=== PATIENT | female | born 1980 | race Hispanic/Latino ===

== ENCOUNTER 2022-04-24 03:57 | Inpatient (IN) | payer BC, OTHER ==
[~2022-04-24] VITALS: Ht 157.5 cm; Wt 74.0 kg
[2022-04-24] MEDS ORDERED: KETOROLAC 60 MG VIAL (30MG/ML) IM ONE (04:30)
[2022-04-24] MEDS ORDERED: CYCLOBENZAPRINE HCL 10 MG TABLET PO ONE (04:30)
[2022-04-24 05:22] LABS: BASOPHILS % (AUTO) 0.3 % (0.0-5.0); EOSINOPHILS % (AUTO) 0.7 % (0.0-8.0); HEMATOCRIT 31.8 % (36-48); LYMPHOCYTES % (AUTO) 7.8 % (21.0-51.0); MEAN CORPUSCULAR HEMOGLOBIN 25.3 pg (27.0-33.0); MEAN CORPUSCULAR HGB CONC 31.8 g/dL (32.0-36.0); MEAN CORPUSCULAR VOLUME 79.5 fL (79-99); MONOCYTES % (AUTO) 9.3 % (3.0-13.0); NEUTROPHILS % (AUTO) 80.8 % (40.0-77.0); PLATELET COUNT (AUTO) 284 K/uL (130-400); RED CELL DISTRIBUTION WIDTH 15.9 % (11.0-15.5); WHITE BLOOD COUNT (AUTO) 11.7 K/uL (4.8-10.8)
[2022-04-24 05:32] LABS: CREATININE 0.6 mg/dL (0.5-1.5); POTASSIUM 3.1 mmol/L (3.5-5.1)
[2022-04-24 05:36] LABS: ALBUMIN 2.5 g/dL (3.5-5.0); TOTAL PROTEIN, SERUM 7.9 g/dL (6.0-8.3)
[2022-04-24] MEDS ORDERED: IOHEXOL 350 MG/ML 100ML INFUS..BTL IV ONE (06:18)
[2022-04-24] MEDS ORDERED: VANCOMYCIN PROTOCOL PER PHARMACY IV ONE (08:30)
[2022-04-24] MEDS ORDERED: CEFTRIAXONE 2GM VIAL IVPB ONE (08:30)
[2022-04-24] MEDS: VANCOMYCIN 1.25 GM/250 ML BAG 250 ML IV SCH ×2 (09:22→20:12)
[2022-04-24 09:39] LABS: MAGNESIUM 1.7 mg/dL (1.80-2.40)
[2022-04-24] MEDS ORDERED: POTASSIUM CHLORIDE 20MEQ/100ML 100 ML IV PRN ×2 (13:00→17:00)
[2022-04-24] MEDS ORDERED: 0.9%NACL 1000ML 1,000 ML IV SCH (13:00)
[2022-04-24] MEDS ORDERED: LIDOCAINE HCL-MPF 1% 2ML VIAL IV PRN ×2 (13:00→17:00)
[2022-04-24] MEDS ORDERED: VANCOMYCIN PROTOCOL PER PHARMACY IV PRN (13:00)
[2022-04-24] MEDS ORDERED: ONDANSETRON 4MG INJ IV PRN (13:00)
[2022-04-24 13:12] LABS: HEMOGLOBIN A1C 5.7 % (4.0-6.0)
[2022-04-24] MEDS: MAGNESIUM 2GM PREMIX 50ML 50 ML IV PRN (13:31)
[2022-04-24] MEDS ORDERED: ACETAMINOPHEN 500 MG TABLET ONE (14:36)
[2022-04-24] MEDS: KETOROLAC 15MG/ML VIAL (15MG/ML) IV PRN (16:46)
[2022-04-24] MEDS ORDERED: KCL 20 MEQ ERTAB PO ONE (16:47)
[2022-04-24] MEDS: ZOSYN 3.375GM +NS 50ML IV SCH ×2 (16:47→23:16)
[2022-04-24] MEDS ORDERED: GADOTERATE MEGLUMINE 10 MMOL/20 ML VIAL IV ONE (16:49)
[2022-04-24] MEDS ORDERED: POTASSIUM CHLORIDE 10% ELIXIR 20 MEQ/15 ML UDCUP PO PRN (17:00)
[2022-04-24] MEDS: KCL 20 MEQ ERTAB PO PRN (17:53)
[2022-04-24 20:00] VITALS: BP 128/82
[2022-04-24] MEDS: HYDROMORPHONE 0.5 MG SYG (0.5MG/0.5ML) IM PRN (21:31)
[2022-04-25] VITALS (27 sets, daily range): BP systolic 111–181; BP diastolic 58–106
[2022-04-25] MEDS: ACETAMINOPHEN 500 MG TABLET PO PRN (00:15)
[2022-04-25] MEDS: HYDROMORPHONE 0.5 MG SYG (0.5MG/0.5ML) IM PRN ×2 (04:48→20:36)
[2022-04-25 04:59] LABS: BASOPHILS % (AUTO) 0.2 % (0.0-5.0); EOSINOPHILS % (AUTO) 0.9 % (0.0-8.0); HEMATOCRIT 29.9 % (36-48); LYMPHOCYTES % (AUTO) 16.2 % (21.0-51.0); MEAN CORPUSCULAR HEMOGLOBIN 24.4 pg (27.0-33.0); MEAN CORPUSCULAR HGB CONC 31.1 g/dL (32.0-36.0); MEAN CORPUSCULAR VOLUME 78.5 fL (79-99); MONOCYTES % (AUTO) 9.3 % (3.0-13.0); NEUTROPHILS % (AUTO) 72.6 % (40.0-77.0); PLATELET COUNT (AUTO) 282 K/uL (130-400); RED BLOOD CELL COUNT(AUTO) 3.81 MIL/uL (4.00-5.50); RED CELL DISTRIBUTION WIDTH 16.1 % (11.0-15.5); WHITE BLOOD COUNT (AUTO) 10.1 K/uL (4.8-10.8)
[2022-04-25 05:11] LABS: ALBUMIN 2.1 g/dL (3.5-5.0); CREATININE 0.7 mg/dL (0.5-1.5); MAGNESIUM 1.7 mg/dL (1.80-2.40); POTASSIUM 3.6 mmol/L (3.5-5.1)
[2022-04-25 09:30] LABS: INR 0.93 (0.85-1.15); PROTHROMBIN TIME 10.1 SEC (9.6-11.6)
[2022-04-25 09:31] LABS: PARTIAL THROMBOPLASTIN TIME 30.2 SEC (26.3-35.5)
[2022-04-25] MEDS: PANTOPRAZOLE 40 MG/VIAL IVP SCH (09:33)
[2022-04-25] MEDS: ZOSYN 3.375GM +NS 50ML IV SCH ×2 (09:33→17:40)
[2022-04-25] MEDS ORDERED: LIDOCAINE 1%-EPI 1:100,000 20 ML VIAL IJ ONE (10:55)
[2022-04-25] MEDS: VANCOMYCIN 1.25 GM/250 ML BAG 250 ML IV SCH ×2 (11:07→21:04)
[2022-04-25] MEDS ORDERED: LACTATED RINGERS 1000ML 1,000 ML IV ONE (11:07)
[2022-04-25] MEDS ORDERED: FAMOTIDINE 20MG VIAL IV ONE (12:32)
[2022-04-25] MEDS ORDERED: HYDROMORPHONE 1 MG INJ ONE (12:33)
[2022-04-25] MEDS ORDERED: LIDOCAINE PF 100MG/5ML (2%) SYRINGE 5ML ONE (12:36)
[2022-04-25] MEDS ORDERED: SUCCINYLCHOLINE 200MG/10ML SYR ONE (12:36)
[2022-04-25] MEDS ORDERED: GLYCOPYRROLATE 1 MG/5 ML SYRINGE ONE (12:36)
[2022-04-25] MEDS ORDERED: ROCURONIUM 10MG/1ML SYR 10 MG/ML ML ONE (12:36)
[2022-04-25] MEDS ORDERED: PROPOFOL 10 MG/ML 20ML VIAL IV ONE (12:36)
[2022-04-25] MEDS ORDERED: FENTANYL CITRATE PF 50 MCG/1 ML 2ML VIAL ONE ×2 (12:37→13:07)
[2022-04-25] MEDS ORDERED: MIDAZOLAM HCL 1 MG/ML 2ML VIAL ONE (12:38)
[2022-04-25] MEDS ORDERED: NEOSTIGMINE 5MG/5ML SYR IV ONE (13:21)
[2022-04-25] MEDS: MAGNESIUM 2GM PREMIX 50ML 50 ML IV PRN (15:31)
[2022-04-26] VITALS: BP 123/82
[2022-04-26] MEDS: ZOSYN 3.375GM +NS 50ML IV SCH ×4 (00:03→23:25)
[2022-04-26] MEDS: ACETAMINOPHEN 500 MG TABLET PO PRN (00:14)
[2022-04-26 04:00] VITALS: BP 123/83
[2022-04-26 04:23] LABS: BASOPHILS % (AUTO) 0.3 % (0.0-5.0); EOSINOPHILS % (AUTO) 0.8 % (0.0-8.0); HEMATOCRIT 29.7 % (36-48); LYMPHOCYTES % (AUTO) 18.2 % (21.0-51.0); MEAN CORPUSCULAR HEMOGLOBIN 24.3 pg (27.0-33.0); MEAN CORPUSCULAR HGB CONC 30.6 g/dL (32.0-36.0); MEAN CORPUSCULAR VOLUME 79.2 fL (79-99); MONOCYTES % (AUTO) 12.7 % (3.0-13.0); NEUTROPHILS % (AUTO) 67.5 % (40.0-77.0); PLATELET COUNT (AUTO) 285 K/uL (130-400); RED BLOOD CELL COUNT(AUTO) 3.75 MIL/uL (4.00-5.50); RED CELL DISTRIBUTION WIDTH 16.1 % (11.0-15.5); WHITE BLOOD COUNT (AUTO) 8.7 K/uL (4.8-10.8)
[2022-04-26 05:06] LABS: CREATININE 0.6 mg/dL (0.5-1.5); POTASSIUM 3.5 mmol/L (3.5-5.1)
[2022-04-26] MEDS ORDERED: GUAIFENESIN-DM 200/20 MG 10 ML ONE (05:15)
[2022-04-26] MEDS: HYDROMORPHONE 0.5 MG SYG (0.5MG/0.5ML) IM PRN (07:27)
[2022-04-26 07:55] VITALS: BP 127/97
[2022-04-26] MEDS: VANCOMYCIN 1.25 GM/250 ML BAG 250 ML IV SCH ×2 (08:27→21:24)
[2022-04-26] MEDS: PANTOPRAZOLE 40 MG/VIAL IVP SCH (08:27)
[2022-04-26] MEDS: KETOROLAC 15MG/ML VIAL (15MG/ML) IV PRN ×2 (09:20→21:37)
[2022-04-26 12:00] VITALS: BP 111/78
[2022-04-26] MEDS: BENZONATATE 100 MG CAPSULE PO PRN (12:04)
[2022-04-26 16:05] VITALS: BP 129/87
[2022-04-26 20:00] VITALS: BP 133/90
[2022-04-27] VITALS (7 sets, daily range): BP systolic 121–137; BP diastolic 75–96
[2022-04-27] MEDS: BENZONATATE 100 MG CAPSULE PO PRN ×2 (03:33→12:34)
[2022-04-27 04:37] LABS: BASOPHILS % (AUTO) 0.2 % (0.0-5.0); EOSINOPHILS % (AUTO) 1.3 % (0.0-8.0); HEMATOCRIT 29.3 % (36-48); MEAN CORPUSCULAR HEMOGLOBIN 24.9 pg (27.0-33.0); MEAN CORPUSCULAR HGB CONC 30.7 g/dL (32.0-36.0); MEAN CORPUSCULAR VOLUME 81.2 fL (79-99); MONOCYTES % (AUTO) 8.8 % (3.0-13.0); PLATELET COUNT (AUTO) 307 K/uL (130-400); RED BLOOD CELL COUNT(AUTO) 3.61 MIL/uL (4.00-5.50); RED CELL DISTRIBUTION WIDTH 15.9 % (11.0-15.5); WHITE BLOOD COUNT (AUTO) 9.2 K/uL (4.8-10.8)
[2022-04-27 04:55] LABS: CREATININE 0.6 mg/dL (0.5-1.5); CRP QUANTITATIVE 165.9 mg/L (0.00-9.0); POTASSIUM 3.5 mmol/L (3.5-5.1)
[2022-04-27] MEDS: KETOROLAC 15MG/ML VIAL (15MG/ML) IV PRN (07:02)
[2022-04-27] MEDS: ZOSYN 3.375GM +NS 50ML IV SCH (09:23)
[2022-04-27] MEDS: PANTOPRAZOLE 40 MG/VIAL IVP SCH (09:23)
[2022-04-27] MEDS: ACETAMINOPHEN WITH CODEINE 1 TAB TAB PO PRN ×2 (09:25→17:29)
[2022-04-27] MEDS: VANCOMYCIN 1.5 GM/250 ML BAG 250 ML IV SCH ×2 (09:41→20:37)
[2022-04-27] MEDS: HYDROMORPHONE 0.5 MG SYG (0.5MG/0.5ML) IM PRN (18:38)
[2022-04-28] MEDS: KETOROLAC 15MG/ML VIAL (15MG/ML) IV PRN ×2 (00:48→15:38)
[2022-04-28 03:35] VITALS: BP 134/84
[2022-04-28 05:10] LABS: BASOPHILS % (AUTO) 0.4 % (0.0-5.0); EOSINOPHILS % (AUTO) 3.9 % (0.0-8.0); HEMATOCRIT 27.8 % (36-48); LYMPHOCYTES % (AUTO) 23.7 % (21.0-51.0); MEAN CORPUSCULAR HEMOGLOBIN 24.6 pg (27.0-33.0); MEAN CORPUSCULAR HGB CONC 30.2 g/dL (32.0-36.0); MEAN CORPUSCULAR VOLUME 81.5 fL (79-99); PLATELET COUNT (AUTO) 345 K/uL (130-400); RED BLOOD CELL COUNT(AUTO) 3.41 MIL/uL (4.00-5.50); RED CELL DISTRIBUTION WIDTH 15.8 % (11.0-15.5); WHITE BLOOD COUNT (AUTO) 8.4 K/uL (4.8-10.8)
[2022-04-28 05:24] LABS: CREATININE 0.6 mg/dL (0.5-1.5); POTASSIUM 3.4 mmol/L (3.5-5.1)
[2022-04-28 07:35] VITALS: BP 138/93
[2022-04-28] MEDS: PANTOPRAZOLE 40 MG/VIAL IVP SCH (08:11)
[2022-04-28] MEDS: VANCOMYCIN 1.5 GM/250 ML BAG 250 ML IV SCH (08:12)
[2022-04-28 11:35] VITALS: BP 142/90
[2022-04-28] MEDS: BENZONATATE 100 MG CAPSULE PO PRN (11:37)
[2022-04-28] MEDS: ACETAMINOPHEN WITH CODEINE 1 TAB TAB PO PRN (12:09)
[2022-04-28] MEDS ORDERED: POLYETHYLENE GLYCOL 3350 17 GM POWD.PACK PO ONE (13:00)
[2022-04-28 15:30] VITALS: BP 146/100
[2022-04-28] MEDS: POLYETHYLENE GLYCOL 3350 17 GM POWD.PACK PO SCH (16:33)
[2022-04-28 20:00] VITALS: BP 149/99
[2022-04-28] MEDS: VANCOMYCIN 1.75 GM/250 ML BAG 250 ML IV SCH (21:00)
[2022-04-29] VITALS (7 sets, daily range): BP systolic 142–154; BP diastolic 95–108
[2022-04-29] MEDS: KETOROLAC 15MG/ML VIAL (15MG/ML) IV PRN (02:45)
[2022-04-29] MEDS: PANTOPRAZOLE 40 MG/VIAL IVP SCH (08:41)
[2022-04-29] MEDS: POLYETHYLENE GLYCOL 3350 17 GM POWD.PACK PO SCH (08:42)
[2022-04-29] MEDS: VANCOMYCIN 1.75 GM/250 ML BAG 250 ML IV SCH ×2 (08:42→20:28)
[2022-04-29 10:05] LABS: INR 0.93 (0.85-1.15); PROTHROMBIN TIME 9.5 SEC (9.6-11.6)
[2022-04-29 10:06] LABS: PARTIAL THROMBOPLASTIN TIME 24.2 SEC (26.3-35.5)
[2022-04-29] MEDS: KCL 20 MEQ ERTAB PO PRN ×2 (10:19→17:28)
[2022-04-29] MEDS: ACETAMINOPHEN WITH CODEINE 1 TAB TAB PO PRN ×2 (14:31→22:01)
[2022-04-29] MEDS: BENZONATATE 100 MG CAPSULE PO PRN (20:28)
[2022-04-30] MEDS: ACETAMINOPHEN WITH CODEINE 1 TAB TAB PO PRN ×2 (04:03→15:31)
[2022-04-30 04:40] VITALS: BP 143/98
[2022-04-30 05:01] LABS: HEMATOCRIT 29.6 % (36-48); MEAN CORPUSCULAR HEMOGLOBIN 24.7 pg (27.0-33.0); MEAN CORPUSCULAR HGB CONC 30.7 g/dL (32.0-36.0); MEAN CORPUSCULAR VOLUME 80.4 fL (79-99); RED BLOOD CELL COUNT(AUTO) 3.68 MIL/uL (4.00-5.50); RED CELL DISTRIBUTION WIDTH 15.4 % (11.0-15.5); WHITE BLOOD COUNT (AUTO) 11.4 K/uL (4.8-10.8)
[2022-04-30 05:11] LABS: CREATININE 0.5 mg/dL (0.5-1.5); POTASSIUM 3.7 mmol/L (3.5-5.1)
[2022-04-30] MEDS: KCL 20 MEQ ERTAB PO PRN ×2 (06:17→11:54)
[2022-04-30 08:00] VITALS: BP 135/95
[2022-04-30] MEDS: POLYETHYLENE GLYCOL 3350 17 GM POWD.PACK PO SCH (08:50)
[2022-04-30] MEDS: VANCOMYCIN 1.75 GM/250 ML BAG 250 ML IV SCH ×2 (08:50→20:06)
[2022-04-30] MEDS: PANTOPRAZOLE 40 MG/VIAL IVP SCH (08:50)
[2022-04-30 12:00] VITALS: BP 138/95
[2022-04-30 16:00] VITALS: BP 135/98
[2022-04-30] MEDS: DiphenhydrAMINE HCL 50 MG/ML VIAL IV PRN (20:14)
[2022-04-30 20:17] VITALS: BP 143/98
[2022-05-01] MEDS: ACETAMINOPHEN WITH CODEINE 1 TAB TAB PO PRN ×2 (00:18→20:59)
[2022-05-01 04:17] VITALS: BP 133/98
[2022-05-01 04:45] VITALS: BP 129/84
[2022-05-01 07:35] VITALS: BP 131/92
[2022-05-01] MEDS: POLYETHYLENE GLYCOL 3350 17 GM POWD.PACK PO SCH (08:50)
[2022-05-01] MEDS: PANTOPRAZOLE 40 MG/VIAL IVP SCH (08:50)
[2022-05-01] MEDS: VANCOMYCIN 1.75 GM/250 ML BAG 250 ML IV SCH ×2 (08:50→21:42)
[2022-05-01 12:00] VITALS: BP 130/94
[2022-05-01] MEDS: BENZONATATE 100 MG CAPSULE PO PRN (15:23)
[2022-05-01 16:00] VITALS: BP 127/87
[2022-05-01 20:26] VITALS: BP 136/95
[2022-05-02] VITALS (7 sets, daily range): BP systolic 115–136; BP diastolic 75–96
[2022-05-02] MEDS: ACETAMINOPHEN WITH CODEINE 1 TAB TAB PO PRN ×2 (01:44→14:25)
[2022-05-02 04:00] LABS: APPEARANCE,URINE CLEAR (CLEAR); BILIRUBIN,URINE NEGATIVE (NEGATIVE); COLOR,URINE COLORLESS (YELLOW); GLUCOSE, URINE (UA) NEGATIVE (NEGATIVE); KETONES,URINE NEGATIVE (NEGATIVE); LEUKOCYTE ESTERASE ,URINE NEGATIVE Leu/uL (NEGATIVE); NITRATE,URINE NEGATIVE (NEGATIVE); OCCULT BLOOD,URINE NEGATIVE (NEGATIVE); PH,URINE 6.5 (5.0-8.0); PROTEIN,URINE NEGATIVE (NEGATIVE); UROBILINOGEN,URINE 0.2 mg/dL (0.2-1.0)
[2022-05-02 04:50] LABS: HEMATOCRIT 30.6 % (36-48); MEAN CORPUSCULAR HEMOGLOBIN 24.7 pg (27.0-33.0); MEAN CORPUSCULAR HGB CONC 30.4 g/dL (32.0-36.0); MEAN CORPUSCULAR VOLUME 81.2 fL (79-99); RED BLOOD CELL COUNT(AUTO) 3.77 MIL/uL (4.00-5.50); RED CELL DISTRIBUTION WIDTH 15.8 % (11.0-15.5); WHITE BLOOD COUNT (AUTO) 10.3 K/uL (4.8-10.8)
[2022-05-02 05:07] LABS: ALBUMIN 2.2 g/dL (3.5-5.0); CREATININE 0.6 mg/dL (0.5-1.5); TOTAL PROTEIN, SERUM 8.1 g/dL (6.0-8.3)
[2022-05-02] MEDS: VANCOMYCIN 1.25 GM/250 ML BAG 250 ML IV SCH ×3 (05:38→22:11)
[2022-05-02] MEDS ORDERED: ALTEPLASE 2MG VIAL 2 MG/VIAL VIAL IVCATH SCH (09:00)
[2022-05-02] MEDS: POLYETHYLENE GLYCOL 3350 17 GM POWD.PACK PO SCH (09:00)
[2022-05-02] MEDS: PANTOPRAZOLE 40 MG/VIAL IVP SCH (09:01)
[2022-05-03 04:00] VITALS: BP 117/84
[2022-05-03 05:23] LABS: HEMATOCRIT 30.5 % (36-48); MEAN CORPUSCULAR HEMOGLOBIN 24.1 pg (27.0-33.0); MEAN CORPUSCULAR HGB CONC 30.2 g/dL (32.0-36.0); MEAN CORPUSCULAR VOLUME 79.8 fL (79-99); PLATELET COUNT (AUTO) 617 K/uL (130-400); RED BLOOD CELL COUNT(AUTO) 3.82 MIL/uL (4.00-5.50); RED CELL DISTRIBUTION WIDTH 15.9 % (11.0-15.5); WHITE BLOOD COUNT (AUTO) 9.9 K/uL (4.8-10.8)
[2022-05-03] MEDS: VANCOMYCIN 1.25 GM/250 ML BAG 250 ML IV SCH ×3 (07:07→21:37)
[2022-05-03 08:00] VITALS: BP 129/88
[2022-05-03] MEDS: POLYETHYLENE GLYCOL 3350 17 GM POWD.PACK PO SCH (09:21)
[2022-05-03] MEDS: PANTOPRAZOLE 40 MG/VIAL IVP SCH (09:21)
[2022-05-03 12:00] VITALS: BP 125/86
[2022-05-03] MEDS: ACETAMINOPHEN WITH CODEINE 1 TAB TAB PO PRN ×2 (13:53→22:17)
[2022-05-03 16:00] VITALS: BP 120/77
[2022-05-03 20:00] VITALS: BP 128/82
[2022-05-04] VITALS: BP 128/82
[2022-05-04 04:00] VITALS: BP 114/61
[2022-05-04] MEDS: VANCOMYCIN 1.25 GM/250 ML BAG 250 ML IV SCH ×3 (05:28→21:48)
[2022-05-04 08:00] VITALS: BP 127/78
[2022-05-04] MEDS: PANTOPRAZOLE 40 MG/VIAL IVP SCH (08:37)
[2022-05-04] MEDS: POLYETHYLENE GLYCOL 3350 17 GM POWD.PACK PO SCH (08:37)
[2022-05-04] MEDS: ACETAMINOPHEN WITH CODEINE 1 TAB TAB PO PRN (09:20)
[2022-05-04 11:43] VITALS: BP 122/85
[2022-05-04 16:00] VITALS: BP 128/81
[2022-05-04 20:00] VITALS: BP 124/83
[2022-05-04] MEDS: BENZONATATE 100 MG CAPSULE PO PRN (20:09)
[2022-05-04] MEDS: ACETAMINOPHEN 500 MG TABLET PO PRN (22:59)
[2022-05-05] VITALS: BP 115/73
[2022-05-05 04:00] VITALS: BP 114/72
[2022-05-05] MEDS: VANCOMYCIN 1.25 GM/250 ML BAG 250 ML IV SCH ×2 (05:22→15:31)
[2022-05-05 08:00] VITALS: BP 135/85
[2022-05-05] MEDS: PANTOPRAZOLE 40 MG/VIAL IVP SCH (08:49)
[2022-05-05] MEDS: POLYETHYLENE GLYCOL 3350 17 GM POWD.PACK PO SCH (08:49)
[2022-05-05 11:36] VITALS: BP 122/78
[2022-05-05 16:00] VITALS: BP 132/76
[2022-05-05] MEDS ORDERED: VANCOMYCIN 1.25 GM/250 ML BAG 250 ML IV ONE (16:00)
[2022-05-05] MEDS: ACETAMINOPHEN 500 MG TABLET PO PRN (17:01)
[2022-05-05 20:00] VITALS: BP 131/74
[2022-05-05] MEDS: VANCOMYCIN 1.5 GM/250 ML BAG IV SCH (21:00)
[2022-05-05] MEDS ORDERED: VANCOMYCIN 1G/250ML KIT 250 ML IV ONE (21:25)
[2022-05-05] MEDS ORDERED: VANCOMYCIN 500MG+NS 100ML 100 ML IV ONE (21:26)
[2022-05-05] MEDS: ACETAMINOPHEN WITH CODEINE 1 TAB TAB PO PRN (21:31)
[2022-05-06] VITALS (7 sets, daily range): BP systolic 117–131; BP diastolic 73–89
[2022-05-06] MEDS: DiphenhydrAMINE HCL 50 MG/ML VIAL IV PRN (03:21)
[2022-05-06] MEDS ORDERED: VANCOMYCIN 500MG+NS 100ML 100 ML IV ONE (04:32)
[2022-05-06] MEDS ORDERED: VANCOMYCIN 1G/250ML KIT 250 ML IV ONE (04:32)
[2022-05-06] MEDS: VANCOMYCIN 1.5 GM/250 ML BAG IV SCH ×3 (04:44→20:08)
[2022-05-06] MEDS ORDERED: VANCOMYCIN 1.25 GM/250 ML BAG 250 ML IV SCH (06:00)
[2022-05-06] MEDS: POLYETHYLENE GLYCOL 3350 17 GM POWD.PACK PO SCH (08:35)
[2022-05-06] MEDS: PANTOPRAZOLE 40 MG/VIAL IVP SCH (08:35)
[2022-05-06] MEDS: ACETAMINOPHEN WITH CODEINE 1 TAB TAB PO PRN (18:11)
[2022-05-07] MEDS: ACETAMINOPHEN WITH CODEINE 1 TAB TAB PO PRN ×2 (00:35→22:07)
[2022-05-07] MEDS: DiphenhydrAMINE HCL 50 MG/ML VIAL IV PRN ×2 (02:25→21:59)
[2022-05-07 04:56] VITALS: BP 124/83
[2022-05-07 05:01] LABS: EOSINOPHILS % (AUTO) 2.8 % (0.0-8.0); HEMATOCRIT 28.6 % (36-48); LYMPHOCYTES % (AUTO) 23.8 % (21.0-51.0); MEAN CORPUSCULAR HEMOGLOBIN 24.6 pg (27.0-33.0); MEAN CORPUSCULAR HGB CONC 30.8 g/dL (32.0-36.0); MEAN CORPUSCULAR VOLUME 79.9 fL (79-99); MONOCYTES % (AUTO) 13.5 % (3.0-13.0); NEUTROPHILS % (AUTO) 58.2 % (40.0-77.0); PLATELET COUNT (AUTO) 547 K/uL (130-400); RED BLOOD CELL COUNT(AUTO) 3.58 MIL/uL (4.00-5.50); RED CELL DISTRIBUTION WIDTH 15.9 % (11.0-15.5); WHITE BLOOD COUNT (AUTO) 8.8 K/uL (4.8-10.8)
[2022-05-07 05:14] LABS: ALBUMIN 2.5 g/dL (3.5-5.0); CREATININE 0.7 mg/dL (0.5-1.5); MAGNESIUM 1.8 mg/dL (1.80-2.40); POTASSIUM 3.9 mmol/L (3.5-5.1); TOTAL PROTEIN, SERUM 8.1 g/dL (6.0-8.3)
[2022-05-07] MEDS: VANCOMYCIN 1.5 GM/250 ML BAG IV SCH ×3 (05:19→22:08)
[2022-05-07] MEDS: MAGNESIUM 2GM PREMIX 50ML 50 ML IV PRN (05:20)
[2022-05-07 08:00] VITALS: BP 112/74
[2022-05-07] MEDS: POLYETHYLENE GLYCOL 3350 17 GM POWD.PACK PO SCH (08:16)
[2022-05-07] MEDS: PANTOPRAZOLE 40 MG TAB DR PO SCH (08:16)
[2022-05-07 11:53] VITALS: BP 127/89
[2022-05-07 15:53] VITALS: BP 127/86
[2022-05-07 19:40] VITALS: BP 115/67
[2022-05-07] MEDS: BENZONATATE 100 MG CAPSULE PO PRN (22:07)
[2022-05-07 23:47] VITALS: BP 101/71
[2022-05-08 03:33] VITALS: BP 102/68
[2022-05-08 06:34] LABS: BASOPHILS % (AUTO) 0.8 % (0.0-5.0); EOSINOPHILS % (AUTO) 2.8 % (0.0-8.0); LYMPHOCYTES % (AUTO) 19.3 % (21.0-51.0); MEAN CORPUSCULAR HEMOGLOBIN 24.6 pg (27.0-33.0); MEAN CORPUSCULAR HGB CONC 30.3 g/dL (32.0-36.0); MEAN CORPUSCULAR VOLUME 81.1 fL (79-99); MONOCYTES % (AUTO) 15.9 % (3.0-13.0); NEUTROPHILS % (AUTO) 60.5 % (40.0-77.0); PLATELET COUNT (AUTO) 542 K/uL (130-400); WHITE BLOOD COUNT (AUTO) 8.4 K/uL (4.8-10.8)
[2022-05-08 06:57] LABS: ALBUMIN 2.5 g/dL (3.5-5.0); CREATININE 0.6 mg/dL (0.5-1.5); MAGNESIUM 2.1 mg/dL (1.80-2.40); POTASSIUM 3.9 mmol/L (3.5-5.1); TOTAL PROTEIN, SERUM 8.3 g/dL (6.0-8.3)
[2022-05-08] MEDS: VANCOMYCIN 1.5 GM/250 ML BAG IV SCH ×3 (07:03→21:37)
[2022-05-08 08:00] VITALS: BP 127/81
[2022-05-08] MEDS: POLYETHYLENE GLYCOL 3350 17 GM POWD.PACK PO SCH (09:12)
[2022-05-08] MEDS: PANTOPRAZOLE 40 MG TAB DR PO SCH (09:12)
[2022-05-08 12:00] VITALS: BP 119/77
[2022-05-08 16:00] VITALS: BP 115/78
[2022-05-08 21:04] VITALS: BP 123/82
[2022-05-08] MEDS: BENZONATATE 100 MG CAPSULE PO PRN (21:35)
[2022-05-08] MEDS: ACETAMINOPHEN WITH CODEINE 1 TAB TAB PO PRN (21:37)
[2022-05-08] MEDS: DiphenhydrAMINE HCL 50 MG/ML VIAL IV PRN (21:48)
[2022-05-08 23:18] VITALS: BP 119/87
[2022-05-09 04:04] VITALS: BP 117/78
[2022-05-09] MEDS: VANCOMYCIN 1.5 GM/250 ML BAG IV SCH ×3 (05:20→20:44)
[2022-05-09 08:00] VITALS: BP 118/78
[2022-05-09] MEDS: PANTOPRAZOLE 40 MG TAB DR PO SCH (09:35)
[2022-05-09] MEDS: POLYETHYLENE GLYCOL 3350 17 GM POWD.PACK PO SCH (09:35)
[2022-05-09 12:00] VITALS: BP 112/72
[2022-05-09] MEDS: ACETAMINOPHEN WITH CODEINE 1 TAB TAB PO PRN (15:36)
[2022-05-09 16:00] VITALS: BP 117/77
[2022-05-09 19:26] VITALS: BP 112/72
[2022-05-09] MEDS: BENZONATATE 100 MG CAPSULE PO PRN (20:44)
[2022-05-09 23:33] VITALS: BP 110/72
[2022-05-10 03:41] VITALS: BP 114/83
[2022-05-10] MEDS: VANCOMYCIN 1.5 GM/250 ML BAG IV SCH ×3 (04:52→21:41)
[2022-05-10 05:25] LABS: BASOPHILS % (AUTO) 0.5 % (0.0-5.0); EOSINOPHILS % (AUTO) 2.2 % (0.0-8.0); HEMATOCRIT 30.4 % (36-48); LYMPHOCYTES % (AUTO) 16.1 % (21.0-51.0); MEAN CORPUSCULAR HEMOGLOBIN 24.6 pg (27.0-33.0); MEAN CORPUSCULAR HGB CONC 30.6 g/dL (32.0-36.0); MEAN CORPUSCULAR VOLUME 80.4 fL (79-99); MONOCYTES % (AUTO) 18.5 % (3.0-13.0); NEUTROPHILS % (AUTO) 62.2 % (40.0-77.0); PLATELET COUNT (AUTO) 531 K/uL (130-400); RED BLOOD CELL COUNT(AUTO) 3.78 MIL/uL (4.00-5.50); WHITE BLOOD COUNT (AUTO) 5.9 K/uL (4.8-10.8)
[2022-05-10 06:43] LABS: ALBUMIN 2.7 g/dL (3.5-5.0); CREATININE 0.6 mg/dL (0.5-1.5); CRP QUANTITATIVE 7.1 mg/L (0.00-9.0); MAGNESIUM 1.9 mg/dL (1.80-2.40); POTASSIUM 3.9 mmol/L (3.5-5.1); TOTAL PROTEIN, SERUM 8.6 g/dL (6.0-8.3)
[2022-05-10 06:50] LABS: % IRON SATURATION 6.7 % (22-44)
[2022-05-10 08:00] VITALS: BP 125/88
[2022-05-10] MEDS: PANTOPRAZOLE 40 MG TAB DR PO SCH (08:33)
[2022-05-10] MEDS: POLYETHYLENE GLYCOL 3350 17 GM POWD.PACK PO SCH (08:33)
[2022-05-10 11:47] VITALS: BP 111/73
[2022-05-10] MEDS: ACETAMINOPHEN WITH CODEINE 1 TAB TAB PO PRN ×2 (13:33→23:44)
[2022-05-10 15:38] VITALS: BP 121/78
[2022-05-10 19:44] VITALS: BP 118/80
[2022-05-10 23:20] VITALS: BP 112/71
[2022-05-11 04:06] VITALS: BP 118/74
[2022-05-11] MEDS: VANCOMYCIN 1.5 GM/250 ML BAG IV SCH ×3 (04:44→20:11)
[2022-05-11] MEDS: ACETAMINOPHEN 500 MG TABLET PO PRN (05:00)
[2022-05-11] MEDS: PANTOPRAZOLE 40 MG TAB DR PO SCH (06:33)
[2022-05-11 07:05] VITALS: BP 116/90
[2022-05-11] MEDS: POLYETHYLENE GLYCOL 3350 17 GM POWD.PACK PO SCH (09:51)
[2022-05-11 11:05] VITALS: BP 117/77
[2022-05-11] MEDS ORDERED: COMPOUND IV REFRIGERATED 1 EACH IVSOLN MISC PRN (12:30)
[2022-05-11] MEDS: ACETAMINOPHEN WITH CODEINE 1 TAB TAB PO PRN ×2 (13:15→20:11)
[2022-05-11 15:05] VITALS: BP 119/88
[2022-05-11 19:00] VITALS: BP 129/91
[2022-05-11 23:51] VITALS: BP 113/89
[2022-05-12] MEDS: ACETAMINOPHEN 500 MG TABLET PO PRN ×2 (03:20→21:01)
[2022-05-12 04:00] VITALS: BP 132/94
[2022-05-12] MEDS: VANCOMYCIN 1.5 GM/250 ML BAG IV SCH ×3 (04:28→21:01)
[2022-05-12 05:49] LABS: BASOPHILS % (AUTO) 0.2 % (0.0-5.0); EOSINOPHILS % (AUTO) 1.1 % (0.0-8.0); HEMATOCRIT 30.6 % (36-48); LYMPHOCYTES % (AUTO) 16.8 % (21.0-51.0); MEAN CORPUSCULAR HGB CONC 30.4 g/dL (32.0-36.0); MEAN CORPUSCULAR VOLUME 78.9 fL (79-99); MONOCYTES % (AUTO) 20.2 % (3.0-13.0); NEUTROPHILS % (AUTO) 61.1 % (40.0-77.0); PLATELET COUNT (AUTO) 384 K/uL (130-400); RED BLOOD CELL COUNT(AUTO) 3.88 MIL/uL (4.00-5.50); RED CELL DISTRIBUTION WIDTH 16.1 % (11.0-15.5); WHITE BLOOD COUNT (AUTO) 4.7 K/uL (4.8-10.8)
[2022-05-12 06:00] LABS: CREATININE 0.7 mg/dL (0.5-1.5); CRP QUANTITATIVE 7.7 mg/L (0.00-9.0); POTASSIUM 3.4 mmol/L (3.5-5.1)
[2022-05-12] MEDS: PANTOPRAZOLE 40 MG TAB DR PO SCH (06:49)
[2022-05-12] MEDS: KCL 20 MEQ ERTAB PO PRN ×2 (06:53→10:38)
[2022-05-12 07:00] LABS: ERYTHROCYTE SEDIMENTATION RATE 79 MM/HR (0-20)
[2022-05-12 07:05] VITALS: BP 99/66
[2022-05-12] MEDS: POLYETHYLENE GLYCOL 3350 17 GM POWD.PACK PO SCH (07:44)
[2022-05-12] MEDS ORDERED: IRON SUCROSE COMPLEX 200 MG in 0.9%NACL 50ML 50 ML IV SCH (09:00)
[2022-05-12] MEDS: IRON SUCROSE COMPLEX 100 MG/5 ML VIAL IVP SCH (10:32)
[2022-05-12] MEDS: ACETAMINOPHEN WITH CODEINE 1 TAB TAB PO PRN ×2 (10:32→15:51)
[2022-05-12] MEDS: CYANOCOBALAMIN (VITAMIN B-12) 1000 MCG/ML 1ML VIAL IM SCH (10:33)
[2022-05-12] MEDS: FOLIC ACID 5 MG/ML VIAL IVP SCH (10:33)
[2022-05-12 11:05] VITALS: BP 117/81
[2022-05-12 15:05] VITALS: BP 160/99
[2022-05-12 20:00] VITALS: BP 122/71
[2022-05-13] VITALS: BP 97/70
[2022-05-13 04:00] VITALS: BP 116/75
[2022-05-13] MEDS: ACETAMINOPHEN 500 MG TABLET PO PRN (05:06)
[2022-05-13] MEDS: VANCOMYCIN 1.5 GM/250 ML BAG IV SCH ×3 (05:06→20:55)
[2022-05-13 05:40] LABS: BASOPHILS % (AUTO) 0.2 % (0.0-5.0); EOSINOPHILS % (AUTO) 1.2 % (0.0-8.0); HEMATOCRIT 31.8 % (36-48); LYMPHOCYTES % (AUTO) 19.1 % (21.0-51.0); MEAN CORPUSCULAR HGB CONC 30.5 g/dL (32.0-36.0); MEAN CORPUSCULAR VOLUME 78.7 fL (79-99); MONOCYTES % (AUTO) 19.6 % (3.0-13.0); NEUTROPHILS % (AUTO) 59.2 % (40.0-77.0); PLATELET COUNT (AUTO) 351 K/uL (130-400); RED BLOOD CELL COUNT(AUTO) 4.04 MIL/uL (4.00-5.50); WHITE BLOOD COUNT (AUTO) 4.1 K/uL (4.8-10.8)
[2022-05-13 06:25] LABS: CREATININE 0.6 mg/dL (0.5-1.5); POTASSIUM 4.1 mmol/L (3.5-5.1)
[2022-05-13 06:54] LABS: ERYTHROCYTE SEDIMENTATION RATE 87 MM/HR (0-20)
[2022-05-13 08:00] VITALS: BP 97/71
[2022-05-13] MEDS: IRON SUCROSE COMPLEX 100 MG/5 ML VIAL IVP SCH (10:17)
[2022-05-13] MEDS: POLYETHYLENE GLYCOL 3350 17 GM POWD.PACK PO SCH (10:17)
[2022-05-13] MEDS: PANTOPRAZOLE 40 MG TAB DR PO SCH (10:17)
[2022-05-13] MEDS: CYANOCOBALAMIN (VITAMIN B-12) 1000 MCG/ML 1ML VIAL IM SCH (10:17)
[2022-05-13 12:00] VITALS: BP 109/77
[2022-05-13] MEDS: FOLIC ACID 5 MG/ML VIAL IVP SCH (12:48)
[2022-05-13 15:59] VITALS: BP 126/84
[2022-05-13 20:00] VITALS: BP 112/80
[2022-05-13] MEDS: ACETAMINOPHEN WITH CODEINE 1 TAB TAB PO PRN (20:05)
[2022-05-13] MEDS: DiphenhydrAMINE HCL 50 MG/ML VIAL IV PRN (22:51)
[2022-05-14] VITALS: BP 112/73
[2022-05-14 04:00] VITALS: BP 106/76
[2022-05-14] MEDS: VANCOMYCIN 1.5 GM/250 ML BAG IV SCH ×2 (05:13→12:56)
[2022-05-14 05:31] LABS: EOSINOPHILS % (AUTO) 0.9 % (0.0-8.0); HEMATOCRIT 28.6 % (36-48); LYMPHOCYTES % (AUTO) 18.7 % (21.0-51.0); MEAN CORPUSCULAR HGB CONC 30.4 g/dL (32.0-36.0); MEAN CORPUSCULAR VOLUME 78.8 fL (79-99); MONOCYTES % (AUTO) 29.7 % (3.0-13.0); PLATELET COUNT (AUTO) 296 K/uL (130-400); RED BLOOD CELL COUNT(AUTO) 3.63 MIL/uL (4.00-5.50); RED CELL DISTRIBUTION WIDTH 15.9 % (11.0-15.5); WHITE BLOOD COUNT (AUTO) 5.7 K/uL (4.8-10.8)
[2022-05-14 06:21] LABS: CREATININE 0.6 mg/dL (0.5-1.5); CRP QUANTITATIVE 25.1 mg/L (0.00-9.0); POTASSIUM 3.9 mmol/L (3.5-5.1)
[2022-05-14 06:54] LABS: ERYTHROCYTE SEDIMENTATION RATE 75 MM/HR (0-20)
[2022-05-14 08:00] VITALS: BP 116/77
[2022-05-14] MEDS: PANTOPRAZOLE 40 MG TAB DR PO SCH (10:07)
[2022-05-14] MEDS: IRON SUCROSE COMPLEX 100 MG/5 ML VIAL IVP SCH (10:08)
[2022-05-14] MEDS: POLYETHYLENE GLYCOL 3350 17 GM POWD.PACK PO SCH (10:08)
[2022-05-14] MEDS: FOLIC ACID 5 MG/ML VIAL IVP SCH (10:46)
[2022-05-14] MEDS: CYANOCOBALAMIN (VITAMIN B-12) 1000 MCG/ML 1ML VIAL IM SCH (10:46)
[2022-05-14 12:00] VITALS: BP 112/74
[2022-05-14] MEDS: ACETAMINOPHEN 500 MG TABLET PO PRN (15:32)
[2022-05-14 16:00] VITALS: BP 111/76
[2022-05-14] MEDS ORDERED: ZYVOX 600 MG TAB PO SCH (21:00)
== END 2022-05-14 19:01 | disposition home or self-care (01) | DRG 871 ==
LOC: EDH 03:57 → EDHIP 12:32 → 4BH 15:27 → UNDODISIN 05-06 15:06 → 3CH 05-07 17:00
PROVIDERS: ADMIT Internal Medicine; ATTEND Internal Medicine
PROC: 0J950ZZ Drainage of Left Neck Subcutaneous Tissue and Fascia, Open Approach (ICD-10-PCS; principal; 2022-04-25 12:41)
PROC: 05HY33Z Insertion of Infusion Device into Upper Vein, Percutaneous Approach (ICD-10-PCS; 2022-04-30)
DX: A41.9 Sepsis, unspecified organism (principal); E43 Unspecified severe protein-calorie malnutrition; M00.9 Pyogenic arthritis, unspecified; Z20.822 Contact with and (suspected) exposure to COVID-19; L02.11 Cutaneous abscess of neck; M86.8X1 Other osteomyelitis, shoulder; L03.114 Cellulitis of left upper limb; E87.6 Hypokalemia; E83.42 Hypomagnesemia; E66.9 Obesity, unspecified; D64.9 Anemia, unspecified; B95.62 Methicillin resistant Staphylococcus aureus infection as the cause of diseases classified elsewhere; B96.89 Other specified bacterial agents as the cause of diseases classified elsewhere; F17.200 Nicotine dependence, unspecified, uncomplicated; Z82.49 Family history of ischemic heart disease and other diseases of the circulatory system; Z90.710 Acquired absence of both cervix and uterus; Z68.29 Body mass index [BMI] 29.0-29.9, adult
CPT/HCPCS: 36415; 70491; 71260; 73030; 73223; 80048; 80053; 80202; 81003; 82040; 82607; 82746; 83036; 83540; 83550; 83605; 83735; 84145; 84703; 85025; 85027; 85610; 85651; 85730; 86140; 87040; 87070; 87076; 87077; 87101; 87116; 87186; 87206; 87635; 93306; 93356; A4606; C9113; G0378; J0330; J0696; J1170; J1200; J1756; J1885; J2001; J2250; J2543; J2704; J2710; J2997; J3010; J3370; J3420; J3475; J3480; J3490; J7120; Q9967